=== PATIENT | male | born 1950 | race Caucasian/White ===

== ENCOUNTER → 2020-03-20 | Outpatient (CLI) | payer OTHER | END | disposition home or self-care (01) | LOC: RAH 14:46 | PROVIDERS: ATTEND Family Medicine | DX: Z13.6 Encounter for screening for cardiovascular disorders (principal) | CPT/HCPCS: 75571 ==

== ENCOUNTER → 2023-05-03 | Outpatient (CLI) | payer MEDICARE ==
[~2023-05-03] VITALS: Ht 175.3 cm; Wt 75.7 kg
[~2023-05-03] MED LIST: TAMS-1 PO
[2023-05-03 15:23] LABS: BASOPHILS % (AUTO) 0.5 % (0.0-5.0); HEMATOCRIT 41.6 % (42-54); LYMPHOCYTES % (AUTO) 33.6 % (21.0-51.0); MEAN CORPUSCULAR HEMOGLOBIN 29.8 pg (27.0-33.0); MEAN CORPUSCULAR HGB CONC 32.5 g/dL (32.0-36.0); MEAN CORPUSCULAR VOLUME 91.8 fL (79-99); MONOCYTES % (AUTO) 5.8 % (3.0-13.0); NEUTROPHILS % (AUTO) 56.9 % (40.0-77.0); PLATELET COUNT (AUTO) 213 K/uL (130-400); RED BLOOD CELL COUNT(AUTO) 4.53 MIL/uL (4.50-6.20); RED CELL DISTRIBUTION WIDTH 14.2 % (11.0-15.5)
[2023-05-03 15:28] VITALS: BP 99/62; PULSE 51; RESP 16
[2023-05-03 15:58] LABS: POTASSIUM 4.6 mmol/L (3.5-5.1)
[2023-05-03 15:59] LABS: INR 0.96 (0.85-1.15); PROTHROMBIN TIME 11.2 SEC (9.6-11.6)
[2023-05-03 16:01] LABS: PARTIAL THROMBOPLASTIN TIME 27.9 SEC (26.3-35.5)
== END | disposition home or self-care (01) ==
LOC: DAH 10:00 → EDSTATUS 10:30
PROVIDERS: ATTEND Urology
DX: Z01.818 Encounter for other preprocedural examination (principal); Z20.822 Contact with and (suspected) exposure to COVID-19; N40.0 Benign prostatic hyperplasia without lower urinary tract symptoms; Z79.01 Long term (current) use of anticoagulants
CPT/HCPCS: 87426; 36415; 80048; 85025; 85730; 85610; A6260

== ENCOUNTER 2023-05-20 07:01 | Day surgery (SDC) | payer MEDICARE ==
[2023-05-18 11:21] VITALS: BP 102/64; PULSE 50; RESP 20
[2023-05-20] VITALS (18 sets, daily range): BP systolic 98–109; BP diastolic 54–66; PULSE 46–60; RESP 11–16
[~2023-05-20] VITALS: Ht 175.3 cm; Wt 75.6 kg
[~2023-05-20 07:01] MED LIST changes: +ROSU10TA28 PO
[2023-05-20] MEDS ORDERED: LACTATED RINGERS 1000ML 1,000 ML IV ONE (07:18)
[2023-05-20] MEDS: CEFTRIAXONE 1G VIAL ONE ×2 (07:24→09:09)
[2023-05-20] MEDS ORDERED: LIDOCAINE PF 100MG/5ML (2%) SYRINGE 5ML ONE (08:58)
[2023-05-20] MEDS ORDERED: FENTANYL CITRATE PF 50 MCG/1 ML 2ML VIAL ONE (08:58)
[2023-05-20] MEDS ORDERED: PROPOFOL 10 MG/ML 20ML VIAL IV ONE (08:58)
[2023-05-20] MEDS ORDERED: EPHEDRINE SULFATE 50 MG/ML AMPULE ONE (09:08)
[2023-05-20] MEDS ORDERED: GLYCOPYRROLATE 1 MG/5 ML SYRINGE ONE (09:12)
[2023-05-20] MEDS ORDERED: ONDANSETRON 4MG INJ ONE (10:35)
[2023-05-20] MEDS ORDERED: PHENAZOPYRIDINE HCL 200 MG TABLET ONE (12:01)
== END 2023-05-20 13:10 | disposition home or self-care (01) ==
LOC: DAH 07:01
PROVIDERS: ATTEND Urology
DX: N40.1 Benign prostatic hyperplasia with lower urinary tract symptoms (principal); Z20.822 Contact with and (suspected) exposure to COVID-19; N13.8 Other obstructive and reflux uropathy; N32.89 Other specified disorders of bladder; Z79.899 Other long term (current) drug therapy; Z98.890 Other specified postprocedural states
CPT/HCPCS: 87426; 52648; 88307; A6260; A4663; J7120 ×2; A4354; A4340; J3010; J3490 ×2; J2001; J0696; J2704; J2405; A4358; A4215; A4223; A4222; A4221; A4600; A4510

== ENCOUNTER 2023-11-11 06:55 | Day surgery (SDC) | payer MEDICARE ==
[2023-11-07 12:16] VITALS: BP 100/64; PULSE 49; RESP 15
[2023-11-07 12:29] LABS: BASOPHILS # (AUTO) 0.03 K/uL (0.00-0.20); BASOPHILS % (AUTO) 0.5 % (0.0-5.0); EOSINOPHILS # (AUTO) 0.25 K/uL (0.00-0.70); EOSINOPHILS % (AUTO) 4.5 % (0.0-8.0); HEMATOCRIT 45.4 % (42-54); IMMATURE GRANULOCYTE ABSOLUTE 0.01 K/uL (0-1); LYMPHOCYTES # (AUTO) 2.3 K/uL (1.0-4.8); MEAN CORPUSCULAR HGB CONC 32.2 g/dL (32.0-36.0); MEAN CORPUSCULAR VOLUME 93.2 fL (79-99); MONOCYTES # (AUTO) 0.4 K/uL (0.1-1.0); NEUTROPHILS # (AUTO) 2.5 K/uL (1.8-7.7); NEUTROPHILS % (AUTO) 44.8 % (40.0-77.0); PLATELET COUNT (AUTO) 181 K/uL (130-400); RED BLOOD CELL COUNT(AUTO) 4.87 MIL/uL (4.50-6.20); RED CELL DISTRIBUTION WIDTH 13.7 % (11.0-15.5); WHITE BLOOD COUNT (AUTO) 5.5 K/uL (4.8-10.8)
[2023-11-07 12:50] LABS: CREATININE 0.9 mg/dL (0.5-1.5); POTASSIUM 5.6 mmol/L (3.5-5.1)
[2023-11-11] VITALS (16 sets, daily range): BP systolic 106–128; BP diastolic 55–69; PULSE 49–57; RESP 10–17
[~2023-11-11] VITALS: Ht 175.3 cm; Wt 74.8 kg
[~2023-11-11 06:55] MED LIST changes: +FLAXSEED OIL PO; +MULT-1367 PO; -TAMS-1 PO
[2023-11-11] MEDS ORDERED: LACTATED RINGERS 1000ML 1,000 ML IV ONE (07:23)
[2023-11-11] MEDS ORDERED: BUPIVACAINE/PF 0.5% 30ML VIAL ONE (07:36)
[2023-11-11] MEDS ORDERED: GLYCOPYRROLATE 0.2 MG/ML 5 ML VIAL ONE (07:43)
[2023-11-11] MEDS ORDERED: PROPOFOL 10 MG/ML 20ML VIAL IV ONE (07:43)
[2023-11-11] MEDS ORDERED: LIDOCAINE PF 100MG/5ML (2%) SYRINGE 5ML ONE (07:43)
[2023-11-11] MEDS ORDERED: PHENYLEPHRINE HCL 10 MG/ML 1ML VIAL IV ONE (07:43)
[2023-11-11] MEDS ORDERED: FENTANYL CITRATE PF 50 MCG/1 ML 2ML VIAL ONE (07:44)
[2023-11-11] MEDS ORDERED: ROCURONIUM BROMIDE 10MG/1ML 5ML VL ONE (07:44)
[2023-11-11 07:51] LABS: CREATININE 0.8 mg/dL (0.5-1.5); POTASSIUM 4.3 mmol/L (3.5-5.1)
[2023-11-11] MEDS ORDERED: HYDROMORPHONE 1 MG INJ ONE (07:53)
[2023-11-11] MEDS ORDERED: FAMOTIDINE 20MG VIAL IV ONE (07:54)
[2023-11-11] MEDS ORDERED: MIDAZOLAM HCL 1 MG/ML 2ML VIAL ONE (08:08)
[2023-11-11] MEDS: CEFAZOLIN SODIUM 2 GM VIAL ONE ×2 (08:11→08:20)
[2023-11-11] MEDS ORDERED: EPHEDRINE SULFATE 50 MG/ML AMPULE ONE (08:27)
[2023-11-11] MEDS ORDERED: NEOSTIGMINE METHYLSULFATE 1MG/ML IV ONE (09:21)
[2023-11-11] MEDS ORDERED: ONDANSETRON 4MG INJ ONE (09:55)
== END 2023-11-11 11:35 | disposition home or self-care (01) ==
LOC: DAH 06:55
PROVIDERS: ATTEND Surgery
DX: K40.90 Unilateral inguinal hernia, without obstruction or gangrene, not specified as recurrent (principal); D17.6 Benign lipomatous neoplasm of spermatic cord; K21.9 Gastro-esophageal reflux disease without esophagitis; E78.5 Hyperlipidemia, unspecified; Z82.49 Family history of ischemic heart disease and other diseases of the circulatory system; Z79.899 Other long term (current) drug therapy; Z98.890 Other specified postprocedural states
CPT/HCPCS: 80048 ×2; 85025; 36415 ×2; 49650; 93005; A6260; A4663; J7030; A4452; A4344; A4215 ×2; J7120; J3490 ×4; J3010; J1170; J2001; J2250; J2704; J2405; J2710; J0665; J2371; J0690; C1781; A4930; A4223; A4222; A4221

== ENCOUNTER → 2024-08-09 | Outpatient (CLI) | payer OTHER ==
[~2024-08-09] MED LIST changes: -ROSU10TA28 PO; +ROSU10TA72 PO
== END | disposition home or self-care (01) ==
LOC: RAH 09:08
PROVIDERS: ATTEND Internal Medicine
DX: Z13.6 Encounter for screening for cardiovascular disorders (principal); Z91.89 Other specified personal risk factors, not elsewhere classified
CPT/HCPCS: 75571